=== PATIENT | male | born 1945 | race Caucasian/White ===

== ENCOUNTER 2018-06-14 13:57 | Emergency (ER) | payer MEDICARE, OTHER ==
[2018-06-14] MEDS ORDERED: ASPIRIN 81 MG TABLET, CHEWABLE PO ONE (14:41)
--- NOTE | 2018-06-14 14:41 | ER Document Report ---
ED Medical Screen (RME) - General Chief Complaint: Abdominal Pain Stated Complaint: ABNORMAL TEST RESULTS Time Seen by Provider: 06/14/18 14:34 Mode of Arrival: Ambulatory Information source: Patient, DrWillie Aguilera, [facility] Records Notes: 73-year-old male with hypertension, reflux presents from his primary care physician's office after having persistent chest pain that has now resolved and left lower quadrant abdominal pain that has now resolved. Patient does state that he had a recent colonoscopy that showed diverticulosis. I have greeted and performed a rapid initial assessment of this patient. A comprehensive ED assessment and evaluation of the patient, analysis of test results and completion of medical decision making process we will be contacted by additional ED providers. PHYSICAL EXAMINATION: Vital signs reviewed-hypertensive GENERAL: Well-appearing, well-nourished and in no acute distress. LUNGS: No respiratory distress Musculoskeletal: Normal range of motion NEUROLOGICAL: Normal speech, normal gait. PSYCH: Normal mood, normal affect. SKIN: Warm, Dry, normal turgor, no rashes or lesions noted. - HPI Onset: Yesterday Onset/Duration: Gradual, Persistent, Gone Quality of pain: Achy, Burning Severity: Mild Associated Symptoms: Abdominal pain, Chest pain. denies: Diarrhea, Nausea, Rhinorrhea Exacerbated by: Denies Relieved by: Denies Similar symptoms previously: Yes Recently seen / treated by doctor: Yes - Related Data Smoking: Quit greater than 1 year Frequency of alcohol use: Occasional Drug Abuse: None Allergies/Adverse Reactions: No Known Allergies Allergy (Verified 06/14/18 14:30) Past Medical History - Social History Chew tobacco use (# tins/day): No Frequency of alcohol use: Social Drug Abuse: None - Past Medical History Cardiac Medical History: Reports: Hx Hypertension Renal/ Medical History: Denies: Hx Peritoneal Dialysis GI Medical History: Reports: Hx Gastroesophageal Reflux Disease Past Surgical History: Reports: Hx Nose Surgery, Hx Orthopedic Surgery, Hx Urinary Tract Surgery Physical Exam - Vital signs Vitals: Temp Pulse Resp BP Pulse Ox 97.4 F 85 15 148/99 H 97 06/14/18 14:04 06/14/18 14:04 06/14/18 14:04 06/14/18 14:04 06/14/18 14:04 Course - Vital Signs Vital signs: Temp Pulse Resp BP Pulse Ox 97.4 F 85 15 148/99 H 97 06/14/18 14:04 06/14/18 14:04 06/14/18 14:04 06/14/18 14:04 06/14/18 14:04
--- NOTE | 2018-06-14 14:58 | ER Document Report ---
ED General - General Chief Complaint: Abdominal Pain Stated Complaint: ABNORMAL TEST RESULTS Time Seen by Provider: 06/14/18 14:34 Mode of Arrival: Ambulatory Information source: Patient Notes: 73-year-old male with a history of hypertension and acid reflux presents from his primary care physician's office for chest pain. Patient states that the chest pain began last night. He thought it was just his acid reflux. He states that it was in the epigastric area. He slept in his recliner and states that the pain lasted about 2 hours and then resolved. Patient went to his primary care physician's office for evaluation and was sent to the emergency department. Patient states that he also had an episode of left lower quadrant pain yesterday. He states that this is completely resolved. He denies any current chest pain, shortness of breath, abdominal pain, nausea, vomiting, diarrhea, constipation. Patient states that he feels like his normal self currently. Patient denies a history of coronary artery disease, hyperlipidemia , diabetes. Patient states that he is a former smoker. He does have a family history of HTN and coronary artery disease. Patient states that his last stress test when his the . He denies any stents or CABG. He does not follow-up with a remediation bioanalytics consultant. - HPI Onset: Yesterday Onset/Duration: Gradual Quality of pain: Burning, Dull, Fullness Severity: Mild Pain Level: Denies Associated symptoms: None Exacerbated by: Denies Relieved by: Denies Similar symptoms previously: Yes Recently seen / treated by doctor: Yes - Related Data Allergies/Adverse Reactions: No Known Allergies Allergy (Verified 06/14/18 14:30) Past Medical History - General Information source: Patient, Dr. Aguilera, [facility] Records - Social History Smoking Status: Former Smoker Chew tobacco use (# tins/day): No Frequency of alcohol use: Social Drug Abuse: None Family History: CAD Patient has suicidal ideation: No Patient has homicidal ideation: No - Past Medical History Cardiac Medical History: Reports: Hx Hypertension Renal/ Medical History: Denies: Hx Peritoneal Dialysis GI Medical History: Reports: Hx Gastroesophageal Reflux Disease Past Surgical History: Reports: Hx Nose Surgery, Hx Orthopedic Surgery, Hx Urinary Tract Surgery Review of Systems - Review of Systems Constitutional: No symptoms reported EENT: No symptoms reported Cardiovascular: Chest pain Respiratory: No symptoms reported Gastrointestinal: Abdominal pain Genitourinary: No symptoms reported Musculoskeletal: No symptoms reported Skin: No symptoms reported Hematologic/Lymphatic: No symptoms reported Neurological/Psychological: No symptoms reported -: Yes All other systems reviewed and negative Physical Exam - Vital signs Vitals: Temp Pulse Resp BP Pulse Ox 97.4 F 85 15 148/99 H 97 06/14/18 14:04 06/14/18 14:04 06/14/18 14:04 06/14/18 14:04 06/14/18 14:04 - Notes Notes: PHYSICAL EXAMINATION: GENERAL: Well-appearing, well-nourished and in no acute distress. HEAD: Atraumatic, normocephalic. EYES: Pupils equal round and reactive to light, extraocular movements intact, sclera anicteric, conjunctiva are normal. ENT: Nares patent, oropharynx clear without exudates. Moist mucous membranes. NECK: Normal range of motion, supple without lymphadenopathy LUNGS: Breath sounds clear to auscultation bilaterally and equal. No wheezes rales or rhonchi. HEART: Regular rate and rhythm without murmurs ABDOMEN: Soft, nontender, nondistended abdomen. No guarding, no rebound. No masses appreciated. Musculoskeletal: Normal range of motion, no pitting or edema. No cyanosis. NEUROLOGICAL: Cranial nerves grossly intact. Normal speech, normal gait. Normal sensory, motor exams PSYCH: Normal mood, normal affect. SKIN: Warm, Dry, normal turgor, no rashes or lesions noted. Course - Re-evaluation Re-evalutation: 06/14/18 15:11 EKG: Ventricular rate 80, TX interval 156, QRS duration 94, QT C406, sinus rhythm. No ST segment elevation. 06/14/18 19:01 Patient has been asymptomatic during his stay. 2 sets of cardiac enzymes were done and normal. Chest x-ray does not show an acute process. Heart score of 3. I will discharge patient home. Patient instructed to with his primary care physician this week, to take [id number] medication as directed, and to return for any worsening symptoms. Patient is agreeable with plan of care. 06/14/18 19:02 - Vital Signs Vital signs: Temp Pulse Resp BP Pulse Ox 97.4 F 85 15 148/99 H 97 06/14/18 14:04 06/14/18 14:04 06/14/18 14:04 06/14/18 14:04 06/14/18 14:04 - Laboratory Result Diagrams: 06/14/18 14:52 06/14/18 14:52 Laboratory results interpreted by me: 06/14/18 06/14/18 06/14/18 14:52 14:52 18:13 WBC 11.0 H Seg Neutrophils % 78.1 H Lymphocytes % 10.8 L Absolute Neutrophils 8.6 H Glucose 111 H Calcium 10.6 H Urine Ketones TRACE H Discharge - Discharge Clinical Impression: Chest pain Qualifiers: Chest pain type: unspecified Qualified Code(s): R07.9 - Chest pain, unspecified Disposition: HOME, SELF-CARE Instructions: Chest Pain of Unclear Cause ([facility]) Referrals: JANENE COSTA PA [Primary Care Provider] - Follow up as needed NATHAN CAUSEY DO [NO LOCAL MD] - Follow up as needed CARLOS LEONARD MD [EMERITUS] - Follow up as needed
[2018-06-14 15:01] LABS: ABSOLUTE BASOPHILS # (AUTO) 0.1 10^3/uL (0.0-0.2); ABSOLUTE LYMPHOCYTES (AUTO) 1.2 10^3/uL (0.5-4.7); ABSOLUTE MONOCYTES (AUTO) 1.1 10^3/uL (0.1-1.4); ABSOLUTE NEUT (AUTO) 8.6 10^3/uL (1.7-8.2); BASOPHILS % (AUTO) 0.7 % (0-2); EOSINOPHILS % (AUTO) 0.1 % (0-6); HEMATOCRIT 47.9 % (37.9-51.0); HEMOGLOBIN 16.2 g/dL (13.5-17.0); LYMPHOCYTES % (AUTO) 10.8 % (13-45); MEAN CORPUSCULAR HEMOGLOBIN 29.7 pg (27.0-33.4); MEAN CORPUSCULAR HGB CONC 33.8 g/dL (32.0-36.0); MEAN CORPUSCULAR VOLUME 88 fl (80-97); MONOCYTES % (AUTO) 10.3 % (3-13); PLATELET COUNT 216 10^3/uL (150-450); RED BLOOD COUNT 5.45 10^6/uL (4.35-5.55); RED CELL DISTRIBUTION WIDTH 13.3 % (11.5-14.0); SEGMENTED NEUTROPHILS % (AUTO) 78.1 % (42-78); TOTAL CELLS COUNTED % (AUTO) 100 %
--- NOTE | 2018-06-14 15:04 | RADIOLOGY REPORT (SQ) ---
EXAM DESCRIPTION: CHEST 2 VIEWS COMPLETED DATE/TIME: 06/14/2018 2:47 pm REASON FOR STUDY: Chest pain COMPARISON: None. EXAM PARAMETERS: NUMBER OF VIEWS: two views TECHNIQUE: Digital Frontal and Lateral radiographic views of the chest acquired. RADIATION DOSE: NA LIMITATIONS: none FINDINGS: LUNGS AND PLEURA: No opacities, masses or pneumothorax. No pleural effusion. MEDIASTINUM AND HILAR STRUCTURES: No masses or contour abnormalities. HEART AND VASCULAR STRUCTURES: Heart normal size. No evidence for failure. BONES: No acute findings. HARDWARE: None in the chest. OTHER: Moderate to large-sized hiatal hernia suggested. IMPRESSION: 1. No acute pulmonary findings. 2. Moderate to large hiatal hernia is suggested. Further evaluation with an esophagram suggested. TECHNICAL DOCUMENTATION: JOB ID: [id number] [employer]- All Rights Reserved Reading location - IP/workstation name: [email or web address]
[2018-06-14 15:18] LABS: ALANINE AMINOTRANSFERASE 28 U/L (21-72); ALBUMIN 4.6 g/dL (3.5-5.0); ALKALINE PHOSPHATASE 56 U/L (38-126); ANION GAP 9 (5-19); ASPARTATE AMINO TRANSFERASE 26 U/L (17-59); BILIRUBIN,DIRECT 0.2 mg/dL (0.0-0.4); BLOOD UREA NITROGEN 20 mg/dL (7-20); CALCIUM 10.6 mg/dL (8.4-10.2); CARBON DIOXIDE 28 mmol/L (22-30); CHLORIDE 103 mmol/L (98-107); CREATINE KINASE 92 U/L (55-170); GLUCOSE 111 mg/dL (75-110); LIPASE 97.2 U/L (23-300); POTASSIUM 4.4 mmol/L (3.6-5.0); SODIUM 140.3 mmol/L (137-145); TOTAL PROTEIN 7.3 g/dL (6.3-8.2)
[2018-06-14 15:30] LABS: CREATINE KINASE MB 2.46 ng/mL (<4.55)
[2018-06-14 15:31] LABS: TROPONIN I < 0.012 ng/mL
[2018-06-14 18:32] LABS: APPEARANCE,URINE CLEAR; BILIRUBIN,URINE NEGATIVE (NEGATIVE); COLOR,URINE YELLOW; GLUCOSE, URINE NEGATIVE (NEGATIVE); KETONES,URINE TRACE mg/dL (NEGATIVE); LEUKOCYTE ESTERASE,URINE NEGATIVE (NEGATIVE); NITRITE,URINE NEGATIVE (NEGATIVE); PROTEIN,URINE NEGATIVE (NEGATIVE); URINE SPECIFIC GRAVITY 1.012; UROBILINOGEN,URINE NEGATIVE mg/dL (<2.0)
--- NOTE | 2018-06-14 18:36 | EKG REPORT ---
SEVERITY:- ABNORMAL ECG - SINUS RHYTHM EARLY PRECORDIAL TRANSITION, NEED TO CONSIDER OLD TRUE POST [place] ETC. : Confirmed by: Luis Beltran MD 14-Jun-2018 18:35:52
[2018-06-14 19:16] VITALS: BP 127/99
== END 2018-06-14 19:16 | disposition home or self-care (01) ==
LOC: ER 13:57
DX: R07.9 Chest pain, unspecified (principal); R10.9 Unspecified abdominal pain; I10 Essential (primary) hypertension; K21.9 Gastro-esophageal reflux disease without esophagitis
CPT/HCPCS: 93005; 99284; 36415; 82553; 82550; 83690; 85025; 80053; 81001; 84484; 71046; 93010; A9270